=== PATIENT | female | born 1975 | race African-American/Black ===

== ENCOUNTER 2024-08-20 13:01 | Outpatient (CLI) | payer OTHER, SELFPAY ==
--- NOTE | ~2024-08-20 | MR_ITS ---
EXAMINATION: MR knee RT wo con DATE: 08/20/2024 13:50 INDICATION: Right knee pain TECHNIQUE: Magnetic resonance imaging (MRI) of the right knee was performed without intravenous contr ast. Sequences included coronal PD-weighted FSE, coronal PD-weighted FS FSE, sagittal T2-weighted FS E, sagittal PD-weighted FS FSE and axial PD weighted fat saturated FSE. COMPARISON: None. FINDINGS: Medial compartment: Medial meniscus is normal. Shallow chondral fissuring with mild chondral surface regularity along the anterior weightbearing medial femoral condyle. Lateral compartment: Lateral meniscus is normal. Articular cartilage is normal. Patellofemoral compartment: Articular cartilage is normal. Ligaments and tendons: Anterior and posterior cruciate ligaments are normal. The medial collateral ligament and fibular rajiv ateral ligament complex are normal. The extensor mechanism is normal. The visualized medial and later al hamstring tendons as well as the iliotibial band are normal. Fluid: Physiologic amount of fluid in the joint space. No loose osteochondral bodies identified. Osseous/other: Normal marrow signal. No fracture or pathologic marrow replacing process. IMPRESSION: 1. 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 Reviewed, dictated and finalized at location B. APPLICATION ENGINEER IMPRESSION: 1. 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
== END 2024-08-20 13:02 | disposition home or self-care (01) ==
DX: M17.11 Unilateral primary osteoarthritis, right knee (principal); S83.31XA Tear of articular cartilage of right knee, current, initial encounter; X58.XXXA Exposure to other specified factors, initial encounter
CPT/HCPCS: 73721